=== PATIENT | female | born 1965 | race African-American/Black ===

== ENCOUNTER 2019-07-13 10:58 | Emergency (ER) | payer MEDICAID ==
[~2019-07-13] VITALS: Ht 177.8 cm; Wt 82.9 kg
[2019-07-13 12:08] LABS: BASOPHILS # (AUTO) 0.04 x10^3/uL (0-0.1); BASOPHILS % (AUTO) 0 % (0-1); EOSINOPHILS # (AUTO) 0.58 x10^3/uL (0-0.4); EOSINOPHILS % (AUTO) 4 % (1-7); LYMPHOCYTES % (AUTO) 17 % (22-44); MD NO; MEAN CORPUSCULAR HGB CONC 31.7 g/dL (32.4-35.8); MEAN CORPUSCULAR VOLUME 69.6 fL (80-100); MEAN PLATELET VOLUME 9.8 fL (7.4-10.4); MONOCYTES # (AUTO) 0.71 x10^3/uL (0.2-0.8); MONOCYTES % (AUTO) 5 % (2-9); NEUTROPHILS # (AUTO) 9.81 x10^3/uL (1.8-6.8); NEUTROPHILS % (AUTO) 74 % (42-75); PLATELET COUNT 279 x10^3/uL (130-400); RED BLOOD COUNT 5.19 x10^6/uL (3.82-5.3); RED CELL DISTRIBUTION WIDTH 15.8 % (9.6-15.2)
[2019-07-13 12:19] LABS: ALBUMIN 3.5 g/dL (3.4-5.0); ANION GAP 7 mmol/L (5-15); CALCIUM 9.4 mg/dL (8.5-10.1); CHLORIDE 107 mmol/L (98-107); CREATININE 0.66 mg/dL (0.55-1.02)
--- NOTE | 2019-07-13 12:48 | NUR ---
TO ROOM FROM LOBBY. NAD.
[2019-07-13 12:58] VITALS: BP 138/69
--- NOTE | 2019-07-13 12:58 | NUR ---
PT CAME IN CO OF "COUGH, LOWER BACK PAIN AND FACIAL SWELLING". WAS AT [facility] YESTERDAY AND WAS SENT HOME WITH ALBUTEROL AND PREDISONE AND ZITHROMYCIN. HAS NOT FILLED RX. BLANKET PROVIDED. BLOOD HAS BEEN DRAWN AND X RAY TAKEN.
== END 2019-07-13 13:54 | disposition home or self-care (01) ==
LOC: ED 13:30
DX: J02.9 Acute pharyngitis, unspecified (principal); J45.909 Unspecified asthma, uncomplicated; M54.9 Dorsalgia, unspecified
CPT/HCPCS: 36415; 71046; 80048; 82040; 85025; 99284

== ENCOUNTER → 2019-11-28 | Outpatient (CLI) | payer MEDICAID ==
[~2019-11-28] MED LIST: IBUP-1223 PO
[2019-11-28 13:53] LABS: INTERNATIONAL NORMALIZED RATIO 0.95 (0.93-1.1); PROTHROMBIN TIME 10.1 Seconds (9.6-11.5)
[2019-11-28 13:55] LABS: ALANINE AMINOTRANSFERASE 29 U/L (12-78); ALBUMIN 3.6 g/dL (3.4-5.0); ANION GAP 9 mmol/L (5-15); CALCIUM 9.2 mg/dL (8.5-10.1); CHLORIDE 109 mmol/L (98-107); MEAN CORPUSCULAR HEMOGLOBIN 22.3 pg (27.0-34.8); MEAN CORPUSCULAR HGB CONC 31.6 g/dL (32.4-35.8); MEAN CORPUSCULAR VOLUME 70.5 fL (80-100); MEAN PLATELET VOLUME 10.2 fL (7.4-10.4); PLATELET COUNT 238 x10^3/uL (130-400); RED CELL DISTRIBUTION WIDTH 15.8 % (9.6-15.2)
[2019-11-28 13:57] LABS: ALKALINE PHOSPHATASE 72 U/L (45-117); BILIRUBIN,TOTAL 0.7 mg/dL (0.2-1.0); TOTAL PROTEIN 7.7 g/dL (6.4-8.2)
[2019-11-28 14:17] LABS: BASOPHILS # (AUTO) 0.02 x10^3/uL (0-0.1); BASOPHILS % (AUTO) 0 % (0-1); EOSINOPHILS # (AUTO) 0.36 x10^3/uL (0-0.4); EOSINOPHILS % (AUTO) 4 % (1-7); LYMPHOCYTES # (AUTO) 2.02 x10^3/uL (1-3.4); LYMPHOCYTES % (AUTO) 24 % (22-44); MD SCAN; MONOCYTES # (AUTO) 0.46 x10^3/uL (0.2-0.8); MONOCYTES % (AUTO) 5 % (2-9); NEUTROPHILS # (AUTO) 5.69 x10^3/uL (1.8-6.8); NEUTROPHILS % (AUTO) 67 % (42-75)
== END | disposition home or self-care (01) ==
LOC: STAR 12:35
PROVIDERS: ATTEND Orthopaedic Surgery
DX: Z01.818 Encounter for other preprocedural examination (principal); M16.12 Unilateral primary osteoarthritis, left hip; M25.552 Pain in left hip
CPT/HCPCS: 36415; 80053; 83036; 85025; 85610; 85730; 87081; 93005

== ENCOUNTER 2019-12-05 05:35 | Inpatient (IN) | payer MEDICAID ==
[~2019-12-05] VITALS: Ht 177.8 cm; Wt 79.6 kg
[2019-12-05] MEDS ORDERED: LACTATED RINGERS 1,000 ML IV SCH (05:56)
[2019-12-05 05:59] VITALS: BP 120/83
[2019-12-05] MEDS ORDERED: GABAPENTIN 300 MG CAPSULE PO ONE (06:00)
[2019-12-05] MEDS ORDERED: ACETAMINOPHEN 500 MG TABLET PO ONE (06:00)
[2019-12-05] MEDS ORDERED: CHLORHEXIDINE 15 ML UDC MM ONE (06:00)
[2019-12-05] MEDS ORDERED: KETOROLAC 60 MG/2 ML ONE (06:10)
[2019-12-05] MEDS ORDERED: TRANEXAMIC ACID 100 MG/ML, 10ML ONE ×2 (06:10)
[2019-12-05] MEDS ORDERED: EPINEPHRINE 1 MG/ML, 1ML ONE (06:11)
[2019-12-05] MEDS ORDERED: ROPIvacaine/PF 0.5%, 30 ML ONE (06:11)
[2019-12-05] MEDS ORDERED: SODIUM CHLORIDE 0.9% 50 ML ONE (06:11)
[2019-12-05] MEDS ORDERED: VANCOMYCIN 1,000 MG ONE (06:11)
[2019-12-05] MEDS ORDERED: ONDANSETRON 4 MG TABLET PO PRN (06:30)
[2019-12-05] MEDS ORDERED: ZOLPIDEM 5MG TABLET PO PRN (06:30)
[2019-12-05] MEDS ORDERED: MAGNESIUM HYDROXIDE 8%, 30ML UDC PO PRN (06:30)
[2019-12-05] MEDS ORDERED: SENNA/DOCUSATE TABLET PO PRN (06:30)
[2019-12-05] MEDS ORDERED: DIPHENHYDRAMINE 25 MG CAPSULE PO PRN (06:30)
[2019-12-05] MEDS ORDERED: ONDANSETRON 2MG/ML, 2ML IV PRN (06:30)
[2019-12-05] MEDS ORDERED: BISACODYL 10 MG SUPP PR PRN (06:30)
[2019-12-05] MEDS ORDERED: MIDAZOLAM 1 MG/ML, 2ML ONE (06:43)
[2019-12-05] MEDS ORDERED: FENTANYL PF 250 MCG/5ML ONE (06:44)
[2019-12-05] MEDS ORDERED: ROCURONIUM 10 MG/ML,10ML ONE (06:50)
[2019-12-05] MEDS ORDERED: PROPOFOL 10 MG/ML, 20ML ONE (06:50)
[2019-12-05] MEDS ORDERED: NEOSTIGMINE 1 MG/ML, 10ML ONE (06:50)
[2019-12-05] MEDS ORDERED: CEFAZOLIN 1,000 MG ONE (06:50)
[2019-12-05] MEDS ORDERED: DEXAMETHASONE 4 MG/ML, 1ML ONE (06:50)
[2019-12-05] MEDS ORDERED: ONDANSETRON 2MG/ML, 2ML ONE (06:50)
[2019-12-05] MEDS ORDERED: GLYCOPYRROLATE 0.2MG/1ML, 5ML ONE (06:50)
[2019-12-05] MEDS ORDERED: METHOCARBAMOL 1,000 MG in DEXTROSE 5% 100 ML IV PRN (08:00)
[2019-12-05] MEDS ORDERED: PROMETHAZINE 25 MG SUPP PR PRN (08:00)
[2019-12-05] MEDS ORDERED: PROMETHAZINE 25 MG/ML, 1ML IVPush PRN (08:00)
[2019-12-05] MEDS ORDERED: OXYcodone 5 MG/5 ML ORAL.SOL UDC PO PRN (08:00)
[2019-12-05] MEDS ORDERED: ONDANSETRON 2MG/ML, 2ML IVPush PRN (08:00)
[2019-12-05] MEDS ORDERED: HYDROmorphone 1 MG/ML, 1ML INJ IVPush PRN (08:00)
[2019-12-05] MEDS ORDERED: LORazepam 2 MG/ML, 1ML IVPush PRN (08:00)
[2019-12-05] MEDS ORDERED: FENTANYL PF 100 MCG/2ML ONE ×3 (08:01→09:49)
[2019-12-05] MEDS ORDERED: OXYcodone 5 MG/5 ML ORAL.SOL UDC ONE ×2 (08:01→09:49)
[2019-12-05] MEDS: FENTANYL PF 100 MCG/2ML IV PRN ×4 (08:03→08:46)
[2019-12-05] MEDS: DOCUSATE 100 MG CAPSULE PO SCH ×2 (09:00→22:36)
[2019-12-05] MEDS ORDERED: PROMETHAZINE 25 MG/ML, 1ML ONE (09:49)
[2019-12-05 13:01] VITALS: BP 111/59
[2019-12-05] MEDS: OXYcodone IR 5MG TABLET PO PRN ×2 (13:30→19:57)
[2019-12-05] MEDS: NS + 20MEQ KCL 1,000 ML IV SCH (13:30)
[2019-12-05] MEDS: CEFAZOLIN PMX 2GM/50ML 50 ML IVPB SCH ×2 (13:31→22:35)
[2019-12-05] MEDS: ASPIRIN 81 MG TABLET EC PO SCH (17:27)
[2019-12-05 18:48] VITALS: BP 98/54
[2019-12-05 21:47] VITALS: BP 95/50
[2019-12-05 23:08] VITALS: BP 95/54
[2019-12-06 00:35] VITALS: BP 94/55
[2019-12-06] MEDS: OXYcodone IR 5MG TABLET PO PRN (00:44)
[2019-12-06] MEDS: NS + 20MEQ KCL 1,000 ML IV SCH ×2 (02:54→15:00)
[2019-12-06 03:50] VITALS: BP 96/55
[2019-12-06] MEDS: HYDROcodone/APAP 5/325 TABLET PO PRN ×4 (05:33→20:24)
[2019-12-06] MEDS ORDERED: DEXAMETHASONE 4 MG/ML, 1ML IVPush SCH (06:00)
[2019-12-06] MEDS: ASPIRIN 81 MG TABLET EC PO SCH ×2 (06:19→17:27)
[2019-12-06 08:25] VITALS: BP 102/62
[2019-12-06] MEDS: DOCUSATE 100 MG CAPSULE PO SCH ×2 (09:09→20:23)
[2019-12-06] MEDS ORDERED: OXYC5TAB3 PO (09:14)
[2019-12-06] MEDS ORDERED: MELO7.5T31 PO (09:15)
[2019-12-06] MEDS ORDERED: TRAM50TA2 PO (09:15)
[2019-12-06] MEDS ORDERED: ASPI81TA45 PO (09:16)
[2019-12-06 15:58] VITALS: BP 100/53
[2019-12-06 20:22] VITALS: BP 105/66
[2019-12-07] MEDS: OXYcodone IR 5MG TABLET PO PRN ×6 (00:20→21:42)
[2019-12-07 01:52] VITALS: BP 124/59
[2019-12-07] MEDS: NS + 20MEQ KCL 1,000 ML IV SCH ×2 (03:30→15:40)
[2019-12-07] MEDS: ACETAMINOPHEN 650 MG/20.3 ML UDC PO PRN ×5 (04:32→21:42)
[2019-12-07] MEDS: ASPIRIN 81 MG TABLET EC PO SCH ×2 (06:11→17:26)
[2019-12-07 07:17] VITALS: BP 91/54
[2019-12-07] MEDS: DOCUSATE 100 MG CAPSULE PO SCH ×2 (08:19→21:42)
[2019-12-07 13:57] VITALS: BP 93/54
[2019-12-07 18:22] VITALS: BP 120/77
[2019-12-08 00:16] VITALS: BP 108/71
[2019-12-08] MEDS: OXYcodone IR 5MG TABLET PO PRN ×6 (01:46→22:30)
[2019-12-08] MEDS: ACETAMINOPHEN 650 MG/20.3 ML UDC PO PRN ×6 (01:46→22:30)
[2019-12-08] MEDS: NS + 20MEQ KCL 1,000 ML IV SCH ×2 (04:00→17:00)
[2019-12-08] MEDS: ASPIRIN 81 MG TABLET EC PO SCH ×2 (05:45→18:19)
[2019-12-08 07:16] VITALS: BP 104/68
[2019-12-08] MEDS: DOCUSATE 100 MG CAPSULE PO SCH ×2 (09:02→20:40)
[2019-12-08 13:24] VITALS: BP_SYST 102; BP_SYST 148; BP_DIAS 68; BP_DIAS 69
[2019-12-08 19:35] VITALS: BP 117/74
[2019-12-09 02:32] VITALS: BP 115/75
[2019-12-09] MEDS: ACETAMINOPHEN 650 MG/20.3 ML UDC PO PRN ×5 (02:41→20:45)
[2019-12-09] MEDS: OXYcodone IR 5MG TABLET PO PRN ×5 (02:42→20:45)
[2019-12-09] MEDS: NS + 20MEQ KCL 1,000 ML IV SCH ×2 (05:28→16:44)
[2019-12-09] MEDS: ASPIRIN 81 MG TABLET EC PO SCH ×2 (05:32→16:44)
[2019-12-09 07:42] VITALS: BP 107/69
[2019-12-09] MEDS: DOCUSATE 100 MG CAPSULE PO SCH ×2 (09:10→20:45)
[2019-12-09] MEDS ORDERED: ACETAMINOPHEN 325 MG TABLET ONE ×2 (11:54→16:42)
[2019-12-09 13:28] VITALS: BP 102/63
[2019-12-09 19:10] VITALS: BP 109/70
[2019-12-10] MEDS: ACETAMINOPHEN 650 MG/20.3 ML UDC PO PRN ×6 (00:59→22:07)
[2019-12-10] MEDS: OXYcodone IR 5MG TABLET PO PRN ×6 (00:59→22:07)
[2019-12-10 02:30] VITALS: BP 114/70
[2019-12-10] MEDS: ASPIRIN 81 MG TABLET EC PO SCH ×2 (05:41→18:06)
[2019-12-10] MEDS: NS + 20MEQ KCL 1,000 ML IV SCH ×2 (06:30→17:46)
[2019-12-10 07:12] VITALS: BP 97/59
[2019-12-10] MEDS: DOCUSATE 100 MG CAPSULE PO SCH ×2 (08:04→20:09)
[2019-12-10] MEDS ORDERED: ACETAMINOPHEN 325 MG TABLET ONE ×3 (09:07→17:49)
[2019-12-10 13:39] VITALS: BP 123/72
[2019-12-10 19:16] VITALS: BP 116/69
[2019-12-11 00:49] VITALS: BP 113/67
[2019-12-11] MEDS: OXYcodone IR 5MG TABLET PO PRN ×3 (02:12→11:04)
[2019-12-11] MEDS: ACETAMINOPHEN 650 MG/20.3 ML UDC PO PRN ×2 (02:13→06:28)
[2019-12-11] MEDS: ASPIRIN 81 MG TABLET EC PO SCH (06:28)
[2019-12-11 06:54] VITALS: BP 102/66
[2019-12-11] MEDS: NS + 20MEQ KCL 1,000 ML IV SCH (07:30)
[2019-12-11] MEDS: DOCUSATE 100 MG CAPSULE PO SCH (08:34)
== END 2019-12-11 13:10 | DRG 470 ==
LOC: OUT 05:35 → 4NE 09:29 → INTOOBSV 09:42 → ORIP 09:42 → OBSVTOIN 09:42 → OUT 10:10 → 4NE 10:58
PROVIDERS: ADMIT Orthopaedic Surgery; ATTEND Orthopaedic Surgery
PROC: 0SRB06A Replacement of Left Hip Joint with Oxidized Zirconium on Polyethylene Synthetic Substitute, Uncemented, Open Approach (ICD-10-PCS; principal; 2019-12-05 07:00)
DX: M16.12 Unilateral primary osteoarthritis, left hip (principal); M25.752 Osteophyte, left hip; Z75.1 Person awaiting admission to adequate facility elsewhere; Z91.012 Allergy to eggs; Z91.018 Allergy to other foods
CPT/HCPCS: 36415; 72170; 76000; 85014; 85018; C1713; G0378; J0171; J0690; J1100; J1885; J2250; J2405; J2704; J2710; J2795; J3010; J3370; J3480; C1776; J2800; J7120; U0001-CS